=== PATIENT | male | born 1990 | race Caucasian/White ===

== ENCOUNTER 2017-08-29 16:03 | Emergency (ER) | payer MEDICAID, OTHER ==
[~2017-08-29] VITALS: Ht 193 cm; Wt 82.8 kg
[2017-08-29 16:35] VITALS: BP 125/76
[2017-08-29] MEDS ORDERED: IBUP-1984 PO (17:15)
== END 2017-08-29 17:30 | disposition home or self-care (01) ==
LOC: ER 16:04
DX: S43.101A Unspecified dislocation of right acromioclavicular joint, initial encounter (principal); S40.211A Abrasion of right shoulder, initial encounter; F12.10 Cannabis abuse, uncomplicated; F15.10 Other stimulant abuse, uncomplicated; V41.9XXA Unspecified car occupant injured in collision with pedal cycle in traffic accident, initial encounter; Y93.55 Activity, bike riding; Y92.413 State road as the place of occurrence of the external cause; Y99.9 Unspecified external cause status
CPT/HCPCS: 73030; 99284